=== PATIENT | female | born 2000 | race American Indian/Alaskan Native ===

== ENCOUNTER 2020-05-05 07:35 | Day surgery (SDC) | payer OTHER ==
[~2020-05-05 07:35] MED LIST: SODIUM CHLORIDE 0.9% 1000 ML 1,000 ML IV SCH
[2020-05-05] MEDS ORDERED: WATER FOR IRRIG STERILE 1,000 ML BOTTLE ONE (07:56)
[2020-05-05] MEDS ORDERED: WATER FOR IRRIG STERILE 250 ML BOTTLE IR ONE (07:56)
--- NOTE | 2020-05-05 08:00 | Anesthesia Day of Surgery ---
Anesthesia Day of Surgery - Day of Surgery Patient Examined: Yes Patient H&P Reviewed: Yes Patient is NPO: Yes
--- NOTE | 2020-05-05 08:00 | Anesthesia Consultation ---
Anesthesia Consult and Med Hx Date of service: 05/05/20 - Airway Anesthetic Teeth Evaluation: Good ROM Head & Neck: Adequate Mental/Hyoid Distance: Adequate Mallampati Class: Class II Intubation Access Assessment: Probably Good - Pre-Operative Health Status ASA Pre-Surgery Classification: ASA1 Proposed Anesthetic Plan: MAC
[2020-05-05] MEDS ORDERED: propofoL 200 MG/20 ML VIAL IV ONE ×2 (08:22→08:35)
[2020-05-05] MEDS ORDERED: LIDOCAINE MPF (2%) 20 MG/1 ML VIAL 5 ML ONE (08:23)
--- NOTE | 2020-05-05 09:06 | Procedure Note ---
Date of procedure: 05/05/20 Pre-op diagnosis: Hematochezia Post-op diagnosis: other (Rectal Polyp on Stalk (possible cause of the Hematochezia-removed by snare polypectomy)/Minor,Internal Hemorrhoid/Normal,Ileal Mucosa) Procedure: Colonoscopy with Hot,Snare Polypectomy and cold Biopsy [place] [facility] [place]geon: ROSALIND LUTHER Estimated blood loss: minimal Pathology: list Specimen disposition: to lab Condition: stable Disposition: same day (Avoid aspirin and NSAID and anticoagulants for 5 days otherwise resume home medication; Follow up in 1 to 2 weeks ([phone]).)
[2020-05-05 09:12] VITALS: BP 94/47
--- NOTE | 2020-05-05 09:33 | Operative Report ---
INDICATIONS: This is a 20-year-old female in otherwise good health, who has lately been complaining of some lower abdominal pain and on occasion hematochezia. Colonoscopy was done to assess for the problem. DESCRIPTION OF PROCEDURE: The procedure was done after getting informed consent with MAC anesthesia. Initial rectal exam was unremarkable. Instrument was passed through the rectum onto the cecum, which was identified with the ileocecal valve and the appendiceal orifice. Visualization was fair to good. The terminal ileum was intubated, showed normal ileal mucosa. No evidence of ileitis. Cecum, ascending colon, transverse colon, descending colon, and sigmoid likewise showed normal mucosa without any evidence of polyps, colitis or diverticular disease. In the rectum; however, there was ____ polyp on a stalk, which possibly is the cause of the patient's bleeding. This was removed by snare polypectomy and the edges were then burnt with the tip of the polypectomy snare. On the retroverted view, the patient only had some minor internal hemorrhoid, which would not have accounted for the patient's hematochezia. ASSESSMENT: Hematochezia secondary to rectal polyp that was removed by snare polypectomy, rectal polyp on a stalk, minor internal hemorrhoid, normal ileal mucosa. The patient had minimal bleeding from the polypectomy site. No complications associated with the procedure. The patient will be asked to avoid aspirin and aspirin-related products for the next few days. Follow up in the office in 1-2 weeks' time. The patient will also be recommended to have a repeat colonoscopy done in a year's time because she had a polyp at a very young age and the procedure was done in the GI lab with assistance of the GI lab team, which included GARETH Farrar with viviana Reynoso and with assistance of anesthesia. JOB# [id number] JIMI/JEFF
--- NOTE | 2020-05-05 14:09 | Post Anesthesia Evaluation ---
- Post Anesthesia Evaluation Patient Participated: Yes Airway Patent: Yes Stable Respiratory Function: Yes Nausea/Vomiting: No Temp > 96.8F: Yes Pain Manageable: Yes Adequeate Hydration: Yes Anesthesia Complications: No
== END 2020-05-05 07:36 | disposition home or self-care (01) ==
LOC: GIO 07:35
DX: R10.30 Lower abdominal pain, unspecified (principal); K92.1 Melena; K64.8 Other hemorrhoids; K62.1 Rectal polyp; K52.89 Other specified noninfective gastroenteritis and colitis
CPT/HCPCS: 45385; 81025; 88305; J2704; J7030

== ENCOUNTER 2022-01-25 09:46 | Day surgery (SDC) | payer OTHER ==
[2022-01-25] MEDS ORDERED: SODIUM CHLORIDE 0.9% 1000 ML 1,000 ML IV SCH (10:30)
[2022-01-25] MEDS ORDERED: SODIUM CHLORIDE 0.9% 1000 ML 1,000 ML ONE (10:33)
--- NOTE | 2022-01-25 10:42 | Anesthesia Day of Surgery ---
Anesthesia Day of Surgery - Day of Surgery Patient Examined: Yes Patient H&P Reviewed: Yes Patient is NPO: Yes
--- NOTE | 2022-01-25 10:46 | Anesthesia Consultation ---
Anesthesia Consult and Med Hx Date of service: 01/25/22 - Airway Anesthetic Teeth Evaluation: Good ROM Head & Neck: Adequate Mental/Hyoid Distance: Adequate Mallampati Class: Class I Intubation Access Assessment: Good - Pulmonary Exam CTA: Yes - Cardiac Exam Cardiac Exam: RRR - Pre-Operative Health Status ASA Pre-Surgery Classification: ASA2 Proposed Anesthetic Plan: MAC - Gastrointestinal Hx Gastroesophageal Reflux Disease: Yes
[2022-01-25] MEDS ORDERED: propofoL 200 MG/20 ML VIAL IV ONE ×3 (11:37→12:01)
--- NOTE | 2022-01-25 12:21 | Procedure Note ---
Date of procedure: 01/25/22 Pre-op diagnosis: GI Bleeding/ Dyspepsai/ Abdominal Pain/ H/O Inflammatory Colon Polyp Post-op diagnosis: other (Mild to Moderate Erosive Esophagitis/ R/O eosinophilic Esophagitis/ Gastric Erosion and Gastritis/ No Peptic Ulcer Disease noted/ Prior h/o Inflammatory, Colon Polyp (none now)/R/O Microscooic colitis/ R/O Ileitis/ Minor,Internal Hemorrhoids (not significant enough for banding)) Procedure: EGD with Cold Biopsy/ Colonoscopy with Cold Biopsy Anesthesia: [facility] [place] Surgeon: ROSALIND LUTHER Estimated blood loss: minimal Pathology: list Specimen disposition: to lab Condition: stable Disposition: same day (Treat with PPI and OTC Hemorrhoidal medication. Avoid aspirin and NSAID for 5 days; otherwise resume previous medication and F/U in 1 to 2 weeks ([phone]).)
--- NOTE | 2022-01-25 12:30 | Operative Report ---
DATE OF SURGERY: 01/25/2022 PROCEDURE PERFORMED: EGD with biopsy. INDICATIONS: This is a 21-year-old -[place] female in otherwise good health, who has been complaining of some GI bleeding and some abdominal pain and dyspeptic symptoms. EGD was done to make sure there was not any significant upper GI pathology present. DESCRIPTION OF PROCEDURE: Procedure was done after getting informed consent with MAC anesthesia. The instrument was passed through the hypopharynx into the esophagus, which showed some [id number] erosive esophagitis. Photodocumentation was taken to assess for the severity to document esophagitis and also biopsy was done to assess for the severity of the erosive esophagitis. Additional biopsy was also done from the mid esophagus to rule out for eosinophilic esophagitis. Stomach showed gastric erosion and gastritis, most pronounced in the antrum. The pylorus is patent. The duodenum in the first and second portion appeared normal. There is no evidence of any peptic ulcer disease noted in the gastric or the duodenal lumen. Biopsy was done from the gastric antrum, gastric body and angular incisura to rule out for H. pylori and atrophic gastritis. ASSESSMENT: History of gastrointestinal bleeding. No active upper gastrointestinal bleeding noted. Dyspepsia. No peptic ulcer disease noted. Gastric erosion, gastritis, which may have contributed to the gastrointestinal bleeding, but no gastrointestinal bleeding at present. Mild to moderate erosive esophagitis, rule out eosinophilic esophagitis. PLAN: To await for the biopsy results. Further treatment adjustment will be according to the biopsy findings. Treat the patient with PPI, have the patient avoid aspirin and aspirin-related products for the next few days. A colonoscopy will also be done for further assessment. The patient will be asked to follow up in the office in 1-2 weeks' time. Procedure was done in the GI lab with assistance of the GI lab team, which included the GI nurse, the operating room technician and with assistance of anesthesia. TID: [id number] RECEIPT: [id number] JIMI/JASEN
--- NOTE | 2022-01-25 12:39 | Operative Report ---
DATE OF SURGERY: 01/25/2022 PROCEDURE PERFORMED: Colonoscopy with biopsy. INDICATIONS: She had an EGD done prior to the colonoscopy, which showed gastric erosion, gastritis and [id number] erosive esophagitis. The patient has a prior history of colon polyp. No colon polyps were noted during this examination. She has a history of gastrointestinal bleeding and some abdominal pain. DESCRIPTION OF PROCEDURE: Initial rectal examination was unremarkable. Instrument was passed through the rectum onto the cecum, which was identified with ileocecal valve and appendiceal orifice. Visualization was good. Cecum was also examined on the retroverted view. No additional pathology was noted. The terminal ileum was intubated and endoscopically showed normal mucosa. Biopsy was done to rule out for possible ileitis. Cecum, ascending colon, transverse colon, descending colon, sigmoid and rectum showed normal mucosa. There was minor internal hemorrhoid noted on the retroverted view not significant enough for banding, but may have contributed to the GI bleeding. Random biopsies were done throughout the entirety of the colon to rule out for possible microscopic colitis with minimal bleeding. ASSESSMENT: Gastrointestinal bleeding, rule abdominal pain, history of inflammatory colon polyp, none now. Rule out ileitis, rule out microscopic colitis, minor internal hemorrhoids, not significant enough for banding. PLAN: To treat the patient with PPI and also to have the patient take hemorrhoidal medication, avoid aspirin and aspirin-related products for the next few days and follow up in the office in 1-2 weeks' time. Procedure was done in the GI lab with assistance of the GI lab team, which included the GI nurse, the technology education teacher and with assistance of Anesthesia. TID: [id number] RECEIPT: [id number] JIMI/ALIREZA
[2022-01-25 17:16] VITALS: BP 107/55
== END 2022-01-25 13:00 | disposition home or self-care (01) ==
LOC: GIO 09:46
DX: K92.2 Gastrointestinal hemorrhage, unspecified (principal); K64.8 Other hemorrhoids; K30 Functional dyspepsia; K29.70 Gastritis, unspecified, without bleeding; K21.00 Gastro-esophageal reflux disease with esophagitis, without bleeding; K63.89 Other specified diseases of intestine; Z91.040 Latex allergy status; Z79.899 Other long term (current) drug therapy
CPT/HCPCS: 43239; 45380; 81025; 88305; J2704; J7030; 88342